=== PATIENT | female | born 2000 | race Caucasian/White ===

== ENCOUNTER 2019-08-27 03:26 | Emergency (ER) | payer BC ==
[~2019-08-27] VITALS: Ht 172.7 cm; Wt 152.3 kg
[2019-08-27] MEDS ORDERED: LEXAPRO 10MG10 MG PO (04:08)
[2019-08-27] MEDS ORDERED: PIRMELLA 7/7/71 TAB PO (04:09)
[2019-08-27 04:32] LABS: HEMATOCRIT 38.3 % (35.0-45.0); HEMOGLOBIN 12.6 g/dl (12.0-15.0); MEAN CELL VOLUME 92 fl (80.0-95.0); MEAN CORPUSCULAR HEMOGLOBIN 30 pg (26.0-32.0); MEAN CORPUSCULAR HGB CONC 33 g/dl (33.0-37.0); MEAN PLATELET VOLUME 9.1 fl (7.4-10.4); PLATELET COUNT 283 K/mm3 (130-400); RED BLOOD COUNT 4.15 M/mm3 (4.10-5.30); REDCELL DISTRIBUTION WIDTH-CV 11.9 % (11.5-14.5)
[2019-08-27 04:38] LABS: ALBUMIN 4.3 gm/dL (3.5-5.0); BILIRUBIN,TOTAL 0.7 mg/dL (0.0-1.0); CALCIUM 9.4 mg/dL (8.4-10.2); CREATININE, serum 0.86 (0.52-1.25); TOTAL PROTEIN 7.8 gm/dL (6.4-8.2)
[2019-08-27 05:05] VITALS: BP 144/70; PULSE 80; TEMP 98
[2019-08-27] MEDS ORDERED: FLEXERIL 1010 MG/TAB PO (05:05)
[2019-08-27 05:16] LABS: BAND 1 % (0-10); LYMPHOCYTE 18 % (20.0-51.0); NEUTROPHILS 74 % (42.0-75.2); PLATELET ESTIMATE NORMAL (NORMAL)
[2019-08-28] MEDS ORDERED: XARELTO15 MG PO (12:12)
== END 2019-08-27 05:11 | disposition home or self-care (01) ==
LOC: COL.ER 03:26
PROVIDERS: Emergency Medicine
DX: M79.662 Pain in left lower leg (principal)

== ENCOUNTER 2019-08-28 10:38 | Emergency (ER) | payer BC ==
[~2019-08-28] VITALS: Ht 172.7 cm; Wt 152.3 kg
[~2019-08-28 10:38] MED LIST changes: -XARELTO15 MG PO
[2019-08-28 10:49] VITALS: BP 145/85; TEMP 97.7
[2019-08-28] MEDS ORDERED: XARELTO15 MG PO (12:12)
[2019-08-28 12:46] VITALS: PULSE 90
== END 2019-08-28 12:46 | disposition home or self-care (01) ==
LOC: COL.ER 10:38
DX: I82.4Z2 Acute embolism and thrombosis of unspecified deep veins of left distal lower extremity (principal)

== ENCOUNTER → 2019-08-28 | Outpatient (CLI) | payer BC ==
[~2019-08-28] MED LIST: FLEXERIL 1010 MG/TAB PO; LEXAPRO 10MG10 MG PO; PIRMELLA 7/7/71 TAB PO; XARELTO15 MG PO
== END ==
LOC: COL.VAS 09:33
DX: I82.442 Acute embolism and thrombosis of left tibial vein (principal)